=== PATIENT | male | born 1970 | race Caucasian/White ===

== ENCOUNTER 2018-05-22 19:44 | Emergency (ER) | payer SELFPAY ==
[~2018-05-22] VITALS: Ht 157.5 cm; Wt 74.8 kg
--- NOTE | 2018-05-22 19:51 | NUR ---
"FOUND SLEEPING ON THE GROUND; ALCOHOL BREATH" REFUSES TO ANSWER QUESTIONS BUT STATES "I WANNA GO HOME" UNSTAEDY GAIT. DOES NOT WANT TO STAY IN BED. VSS, SKIN INTACT, NO OBVIOUS SIGNS OF DISTRESS. PT HAS NO COMPLAINTS AT THIS TIME. READY FOR EVAL.
--- NOTE | 2018-05-22 19:56 | NUR ---
PT CONTINUES TO WANDER HALLWAYS. CONT TO REORIENT HIM BACK TO BED.
--- NOTE | 2018-05-22 20:06 | NUR ---
ASSIST PT TO RESTROOM.
--- NOTE | 2018-05-22 20:38 | NUR ---
Patient discharged to home in stable condition. Written and verbal after care instructions given. Patient verbalizes understanding of instruction.
[2018-05-22 23:25] VITALS: BP 127/78
== END 2018-05-22 20:42 | disposition home or self-care (01) ==
LOC: ER 19:46
DX: F10.129 Alcohol abuse with intoxication, unspecified (principal); Y90.9 Presence of alcohol in blood, level not specified
CPT/HCPCS: 99283; A4606; Z7610